=== PATIENT | female | born 1970 | race Caucasian/White ===

== ENCOUNTER 2017-03-31 12:46 | Emergency (ER) | payer OTHER ==
[~2017-03-31] VITALS: Ht 180.3 cm; Wt 99.2 kg
[~2017-03-31 12:46] MED LIST: DILANTIN100 MG PO; DILANTIN50 MG PO; LEVOTHYROXINE50 MCG PO; METAXALONE800 MG PO; NORCO 5/3251 TABLET PO; PREVACID30 MG PO; ZOFRAN8 MG PO
[2017-03-31 14:54] LABS: HEMATOCRIT 41.4 % (36.0-46.0); MCH 29.4 PG (29.0-34.0); MCHC 32.9 G/DL (30.0-36.0); MCV 89.6 FL (83-99); PLATELET COUNT 207 K/uL (156-360); RBC DIS.WIDTH-CV 11.8 % (11.8-14.6); RBC DIS.WIDTH-SD 38.1 % (39-53); RED BLOOD COUNT 4.62 M/uL (3.80-5.20); WHITE BLOOD COUNT 8.8 K/uL (4.1-10.2)
[2017-03-31 15:05] LABS: CHLORIDE 108 mEq/L (99-109); POTASSIUM 4.1 mEq/L (3.7-5.4); SODIUM 141 mEq/L (136-147)
[2017-03-31 15:07] LABS: GLUCOSE 101 mg/dL (70-99)
[2017-03-31 15:08] LABS: ANION GAP 10 MEQ/L (2-14)
[2017-03-31 15:11] LABS: GFR ESTIMATE (CALCULATED) > 59 mL/min/
[2017-03-31 15:12] LABS: UREA NITROGEN (BUN) 15 mg/dL (9-23)
[2017-03-31 15:41] LABS: SAMPLE HEMOLYSIS CHECK 0; SAMPLE ICTERIC CHECK 0; SAMPLE LIPEMIA CHECK 0
[2017-03-31 17:08] VITALS: BP 113/72
== END 2017-03-31 17:13 | disposition home or self-care (01) ==
LOC: EME 12:46
PROVIDERS: Emergency Medicine
DX: S00.93XA Contusion of unspecified part of head, initial encounter (principal); W07.XXXA Fall from chair, initial encounter; R56.9 Unspecified convulsions
CPT/HCPCS: 70450; 80048; 80185; 85027; 99281; 99284